=== PATIENT | female | born 1980 | race Hispanic/Latino ===

== ENCOUNTER 2018-03-26 14:50 | Emergency (ER) | payer OTHER ==
[2018-03-26] MEDS ORDERED: methylPREDNISolone Acetate 40 mg/ml Vial ONE (15:26)
== END 2018-03-26 15:43 | disposition home or self-care (01) ==
LOC: NAV ERS 14:50
DX: T78.40XA Allergy, unspecified, initial encounter (principal); F41.9 Anxiety disorder, unspecified; F17.210 Nicotine dependence, cigarettes, uncomplicated; Z79.899 Other long term (current) drug therapy
CPT/HCPCS: 96372; J1030

== ENCOUNTER 2018-03-31 18:41 | Emergency (ER) | payer OTHER ==
[2018-03-31] MEDS ORDERED: Ibuprofen 800 MG TAB ONE (19:27)
== END 2018-03-31 19:33 | disposition home or self-care (01) ==
LOC: NAV ERS 18:41
DX: L50.0 Allergic urticaria (principal); R19.7 Diarrhea, unspecified; F41.9 Anxiety disorder, unspecified; F17.210 Nicotine dependence, cigarettes, uncomplicated

== ENCOUNTER 2018-03-31 22:14 | Emergency (ER) | payer OTHER ==
[2018-03-31] MEDS ORDERED: diphenhydrAMINE 50 MG/ML VIAL ONE (22:32)
[2018-03-31] MEDS ORDERED: Sodium Chloride 0.9% 1,000 ML ONE (22:32)
[2018-03-31] MEDS ORDERED: methylPREDNISolone Sod Succ/PF 125 MG/2 ML VIAL ONE (22:32)
== END 2018-04-01 00:05 | disposition home or self-care (01) ==
LOC: NAV ERS 22:14
DX: L50.0 Allergic urticaria (principal); F41.9 Anxiety disorder, unspecified; F17.210 Nicotine dependence, cigarettes, uncomplicated; Z79.899 Other long term (current) drug therapy
CPT/HCPCS: 96361; 96374; 96375; J1200; J2930; J7050